=== PATIENT | female | born 1940 | race Caucasian/White ===

== ENCOUNTER 2024-01-20 20:53 | Emergency (ER) | payer OTHER ==
[~2024-01-20] VITALS: Ht 154.9 cm; Wt 75.0 kg
[2024-01-20] MEDS: TETANUS-DIPTH-ACEL PERTUSSIS 0.5ML SYR Tdap IM ONE (22:00)
[2024-01-20] MEDS: ACETAMINOPHEN/CODEINE#3 (300/30mg) TAB PO ONE (23:16)
[2024-01-21 00:48] VITALS: BP 153/67; PULSE 72; RESP 17; TEMP 97.9; O2SAT 94
== END 2024-01-21 00:53 | disposition home or self-care (01) ==
LOC: ER 20:53 → EDBD 20:53 → ER 01-21 00:53
DX: S01.81XA Laceration without foreign body of other part of head, initial encounter (principal); S80.02XA Contusion of left knee, initial encounter; Z86.73 Personal history of transient ischemic attack (TIA), and cerebral infarction without residual deficits; Z98.890 Other specified postprocedural states; Z88.8 Allergy status to other drugs, medicaments and biological substances; W01.0XXA Fall on same level from slipping, tripping and stumbling without subsequent striking against object, initial encounter; Y93.89 Activity, other specified; Y92.89 Other specified places as the place of occurrence of the external cause; Y99.8 Other external cause status
CPT/HCPCS: 12011; 70450; 73562; 90471; 90715; 93005

== ENCOUNTER 2025-09-23 10:41 | Emergency (ER) | payer OTHER ==
[~2025-09-23] VITALS: Ht 154.9 cm; Wt 61.0 kg
[2025-09-23 10:41] VITALS: BP 153/81; PULSE 75; RESP 16; TEMP 98.2; O2SAT 98
--- NOTE | 2025-09-23 11:51 | ED.PDOC ---
History of Present Illness HPI Comments Ms. Zapata 85-year-old female with prior medical history of arthritis, hyperlipidemia, hypertension, and TIA, who presents today accompanied by her daughter with chief complaint of left upper extremity pain. Per the patient's daughter, she is walker/cane dependent and yesterday was not using when she was bending over to give herpetic treat when she lost her balance and fell forward landing on her left shoulder and knee. The patient states she had immediate onset of sharp left shoulder pain, radiating down her arm, 10/10 intensity, aggravated by moving her shoulder, slightly with the use of makes shift sling provided by her grandson, associated with left knee pain described as sharp, 6/10 intensity, without aggravate relieving factors. The patient states that she was unable to get up on her own required the help of her grandson and daughter. Refers that today when she was getting out of bed she also slipped and fell landing on the same shoulder. She denies hitting her head, nausea, vomiting, loss of consciousness, bleeding, numbness of the left hand, chest pain, and hip pain. Due to secondary fall today, she was brought by her daughter for further evaluation. On initial evaluation, vitals are stable, there were no apparent signs of hemorrhage or deformity, with limitations of range of motion of the left shoulder and knee. Allergies: Sulfa drugs (facial swelling) Chief Complaint: Upper Extremity Time Seen by MD: 11:02 Allergies: Coded Allergies: Sulfa Antibiotics (Verified Allergy, Unknown, 01/20/24) Information Source: Patient, Relative (Child) Mode of Arrival: EMS Severity: Mild Timing: Hours Duration: Since onset Past Medical History PAST MEDICAL HISTORY: Arthritis, High Lipids, Hypotension, TIA Surgical History: Cholecystectomy, Hysterectomy Surgical History (Other): Left toal knee replacement, right hip replacement, back surgery CHIEF NURSING EXECUTIVE History: No Pertinent CHIEF NURSING EXECUTIVE History Family History Family History: Reviewed,noncontributory to illness Social History Smoker: Non-Smoker Alcohol: Denies ETOH Use Drugs: Marijuana (Uses cannabis gummies for sleep ) Lives In: Home Constitutional: denies: chills, diaphoresis, fatigue, fever, malaise, sweats, weakness EENTM: denies: blurred vision, double vision, ear bleeding, ear discharge, ear drainage, ear pain, ear ringing, eye pain, mouth pain, mouth swelling, nasal discharge, nose bleeding, nose congestion, nose pain, photophobia, throat pain Respiratory: denies: cough, hemoptysis, orthopnea, shortness of breath Cardiovascular: denies: chest pain, dizzy spells, diaphoresis, Dyspnea on exertion, edema, left arm pain, lightheadedness, palpitations Gastrointestinal: reports: constipated; denies: abdomen distended, abdominal pain, diarrhea, dysphagia, hematemesis, melena, nausea, rectal bleeding, rectal pain, vomiting Genitourinary: reports: ; denies: abnormal vagina bleeding, burning, dysuria, flank pain, frequency, hematuria, incontinence, pain Neurological: denies: dizziness, fainting, headache, left sided numbness, left sided weakness, numbness, paresthesia, pre-existing deficit, right sided numbness, right sided weakness, seizure, speech problems, tingling, tremors, weakness Musculoskeletal: reports: joint pain (left shoulder and knee pain ), joint swelling; denies: back pain, muscle pain, muscle stiffness, neck pain Integumetry: denies: bruises, change in color, laceration, lesions, lumps, rash, wounds Physical Exam General Appearance: Normal HEENT: Normal ENT Inspection, PERRL/EOMI, Pharynx Normal Neck: Full Range of Motion, Non-Tender, Normal Inspection Respiratory: Lungs Clear, No Accessory Muscle Use, No Respiratory Distress, Normal Breath Sounds Cardiovascular: No Edema, No Murmur, Normal Peripheral Pulses, Regular Rate/Rhythm Breast Exam: Deferred Gastrointestinal: Non Tender, Normal Bowel Sounds, Soft Genitalia: Deferred Pelvic: Deferred Rectal: Deferred Extremities: Decreased range of motion (Decreased range of motion on passive an d active movements of left shoulder, range of motion of right shoulder intact), Swelling (Swelling of the left shoulder is observed), Tender (Pain on palpation of left shouder and left knee) Neurologic: Alert, No Motor Deficits, Normal Affect, Normal Mood, No Sensory Deficits Cerebellar Function: Normal Reflexes: NOT DONE Skin: Other (No bruising observed on the head or scalp, no bruising noted of left shoulder, minor bruising of the left knee) Lymphatic: No Adenopathy Was a procedure done? Was a procedure done?: No Differential Dx Considerations may include: Fracture, Abrasion, Contusion, Muscle strain X-Ray, Labs, Meds, VS Vital Signs Date Time Temp Pulse Resp B/P (MAP) Pulse Ox O2 Delivery O2 Flow Rate FiO2 09/23/25 10:41 98.2 75 16 153/81 98 98.2 Lab Test 09/23/25 13:10 Range/Units POC Glucose 92 70-106 mg/dl Current Medications Medications (Trade) Dose Ordered Sig/Rufus Route Start Time Stop Time Status Last Admin Ibuprofen (Motrin Tablet) 600 mg ONCE ONCE PO 09/23/25 12:45 09/23/25 12:52 DC 09/23/25 13:02 Time of 1ST Reevaluation: 12:20 Reevaluation 1ST: Unchanged Patient Education/Counseling: Diagnosis, Treatment Family Education/Counseling: Diagnosis, Treatment Comments Patient presented today with left shoulder pain and left knee pain status post a mechanical fall at home On initial evaluation, the patient is well, with stable vitals Physical exam is positive for inability to move the left shoulder due to pain, swelling and on palpation of the left shoulder X-ray of left shoulder shows a nondisplaced humeral neck fracture X-ray of the left knee shows no evidence of acute fracture, dislocation, or malalignment Orthopedics consult was placed, who recommend placement of sling for immobilization and outpatient follow up Patient has been given ibuprofen for pain and sling was applied At grandson's request, blood glucose was checked 92. The patient's vitals are stable, she is stable for discharge home SEPSIS Sepsis Screen Date sepsis recognized/suspect: Sep 23, 2025 Time Sepsis recognized/suspect: 1051 Recent Procedure: No On Antibiotic Therapy: No Respiratory Rate >20: No Heart Rate >90: No Temp<36 C (96.8 F) or >38.3 C: No SBP <90 or MAP <65 mmHG: No New Acute Mental Status Change: No Is the patient on CPAP, BIPAP,: No Physician Orders L Shoulder 2+ View Xray (09/23/25 11:29) L Knee 2v Xray (09/23/25 11:29) * Orthopedic Consult (09/23/25 12:39) Apply Sling (09/23/25 13:10) Vital Signs Date Time Temp Pulse Resp B/P (MAP) Pulse Ox O2 Delivery O2 Flow Rate FiO2 09/23/25 10:41 98.2 75 16 153/81 98 98.2 Medications Medications Dose Ordered Sig/Rufus Route Start Time Stop Time Status Last Admin Dose Admin Ibuprofen 600 mg ONCE ONCE PO 09/23/25 12:45 09/23/25 12:52 DC 09/23/25 13:02 Departure 1 Departure Time of Disposition: 13:13 Impression: Primary Impression: Fracture of neck of humerus Disposition: HOME / SELF CARE / HOMELESS Condition: Stable Additional Instructions: You presented today due to shoulder and knee pain secondary to a fall Your work up including a left shoulder Xray and left knee xray are significant for a displaced fracture of the humeral neck. Left knee x-ray without s ignificant findings Orthopedics was consulted, per their recommendations you had a sling applied and she will follow up outpatient with them in 7 days. We recommend ibuprofen as needed for pain. Please follow up with your PCP within 1 week. If your symptoms were to worsen or you have further concern please return to the emergency department. Critical Care Note Critical Care Time?: No Stability Stability form required: MARCOS Bolden RESIDENT Sep 23, 2025 11:51
--- NOTE | 2025-09-23 12:18 | DVH ---
EXAM: XY L SHOULDER 2+ VIEW XRAY CLINICAL INDICATION: Shoulder pain after fall TECHNIQUE: XY L SHOULDER 2+ VIEW XRAY Comparison: None FINDINGS/IMPRESSION: Nondisplaced left proximal humeral neck fracture.
--- NOTE | 2025-09-23 12:19 | DVH ---
EXAM: XY L KNEE 2V XRAY CLINICAL INDICATION: fall on knee TECHNIQUE: XY L KNEE 2V XRAY Comparison: XY L KNEE 3V XRAY on DOS: 01/20/24 FINDINGS/IMPRESSION: There is no evidence of acute fracture or dislocation. Left total knee arthroplasty. The alignment is anatomical. There is no radiopaque foreign body.
[2025-09-23] MEDS: IBUPROFEN 600 MG TAB PO ONE (13:02)
--- NOTE | 2025-09-23 13:17 | DVHINCON2 ---
Consult Note Consult Consult Note History of Present Illness Ms. Dubose is evaluated in the Emergency Department following a ground-level fall at home. The patient presented accompanied by her son. She reports left shoulder pain since the incident. She also has a chronic history of left shoulder pain. Denies head injury, loss of consciousness, or other trauma. Physical Examination focused General: Awake, alert, oriented 3, in mild distress due to pain Left Upper Extremity: Tenderness to palpation over the proximal humerus region Grossly neurovascularly intact distally Skin intact, no open lesions Limited shoulder range of motion secondary to pain Imaging Left shoulder X-ray: Proximal humerus fracture (non-displaced/minimally displaced pattern) Assessment Diagnosis: Left proximal humerus fracture, closed, initial encounter Plan Treatment: Sling immobilization for comfort Activity: [id number] left upper extremity Follow-up: Orthopedic clinic follow-up in 7 days for clinical and radiographic reassessment (repeat X-ray) Pain control: Per ED/primary team Education: All questions answered. Patient and her son understand and agree with the treatment and follow-up plan. Disposition: Safe for discharge from orthopedic standpoint Plan discussed with: Patient, Other Visit Coding Surgery Date of Service if different f: Sep 23, 2025 Billing Provider: QUIQUE WILEY Surgery Visit Codes: 43606 - INP CONSULT <55 MIN QUIQUE WILEY Sep 23, 2025 13:17
== END 2025-09-23 14:01 | disposition home or self-care (01) ==
LOC: EDBD 10:41 → ER 10:41
DX: S42.212A Unspecified displaced fracture of surgical neck of left humerus, initial encounter for closed fracture (principal); F12.90 Cannabis use, unspecified, uncomplicated; E78.5 Hyperlipidemia, unspecified; I10 Essential (primary) hypertension; M19.90 Unspecified osteoarthritis, unspecified site; Z86.73 Personal history of transient ischemic attack (TIA), and cerebral infarction without residual deficits; Z90.49 Acquired absence of other specified parts of digestive tract; Z96.643 Presence of artificial hip joint, bilateral; Z90.710 Acquired absence of both cervix and uterus; Z88.2 Allergy status to sulfonamides; Z96.652 Presence of left artificial knee joint; W18.30XA Fall on same level, unspecified, initial encounter; Y93.89 Activity, other specified; Y92.098 Other place in other non-institutional residence as the place of occurrence of the external cause; Y99.8 Other external cause status
CPT/HCPCS: 73030; 73560; 82947; 82962